=== PATIENT | female | born 1975 | race Caucasian/White ===

== ENCOUNTER 2017-08-02 06:46 | Day surgery (SDC) | payer BC, MEDICAID ==
[~2017-08-02 06:46] MED LIST: Lactated Ringers 1,000 ML IV SCH
[2017-08-02] MEDS ORDERED: Propofol 200 MG/20 ML SDV IV ONE (08:00)
[2017-08-02] MEDS ORDERED: Midazolam 1 MG/ML 2 ML SDV IV ONE (08:00)
--- NOTE | 2017-08-02 09:01 | PCM.OPNOTE ---
- General Post-Op/Procedure Note Date of Surgery/Procedure: 08/02/17 Operative Procedure(s): c scope with random biopsies Findings: melanosis coli Pre Op Diagnosis: bloating, abd pain, constipation Post-Op Diagnosis: melanosis coli Anesthesia Technique: CASIE Primary Surgeon: Cheikh Lai Anesthesia Provider: King Zarate Pathology: random colon biopsies Complications: None Condition: Good Free Text/Narrative:: see dictation
[2017-08-02 09:16] VITALS: BP 98/57
--- NOTE | 2017-08-02 10:05 | OR ---
DATE OF OPERATION: 08/02/2017 SURGEON: Cheikh Lai MD PROCEDURE PERFORMED: Colonoscopy with random biopsies. PREOPERATIVE DIAGNOSIS: History of abdominal pain, constipation, and bloating. POSTOPERATIVE DIAGNOSIS: Melanosis coli. INDICATIONS FOR PROCEDURE: This is a 42-year-old white female who is referred with the above-mentioned complaints. She was offered and accepted a C scope. DESCRIPTION OF PROCEDURE: After an excellent IV sedation was administered, digital rectal exam was performed. No marked abnormality was noted. The flexible colonoscope was inserted and advanced to the cecum without difficulty. The following findings were noted. Ascending colon; marked melanosis coli, random biopsies taken. Transverse colon; marked melanosis coli, random biopsies taken. Descending colon; marked melanosis coli, random biopsies taken. Sigmoid and rectum; marked melanosis coli, random biopsies were taken. Colon was deflated as the scope was removed. The patient tolerated the procedure well, was taken to recovery room in good condition. /[id number] COLT/ADRIÁN
== END 2017-08-02 09:36 | disposition home or self-care (01) ==
LOC: FB.SDS 06:46
PROVIDERS: ATTEND Surgery
DX: K63.89 Other specified diseases of intestine (principal); F41.9 Anxiety disorder, unspecified; F32.9 Major depressive disorder, single episode, unspecified; Z88.2 Allergy status to sulfonamides; Z88.8 Allergy status to other drugs, medicaments and biological substances; Z91.09 Other allergy status, other than to drugs and biological substances; Z79.899 Other long term (current) drug therapy; Z90.49 Acquired absence of other specified parts of digestive tract; Z98.890 Other specified postprocedural states; Z87.891 Personal history of nicotine dependence
CPT/HCPCS: 45380; 88305; J2250; J2704; J7120